=== PATIENT | male | born 1960 | race Caucasian/White ===

== ENCOUNTER 2020-02-06 08:44 | Day surgery (SDC) | payer OTHER ==
[~2020-02-06] VITALS: Ht 180.3 cm; Wt 135.6 kg
[~2020-02-06 08:44] MED LIST: ALOGLIPTIN25 MG PO; ASA81BEC PO; CETIRIZINE HCL10 MG PO; DULOXETINE HCL60 MG PO; GABAPENTIN 100100 MG PO; IBUPROFEN 800800 M1 PO; IPRAT-ALBUT 0.5-3 ML INH; LANTUS SUBQ; METFORMIN HCL500 M1 PO; METOPROLOL SUCC50 MG PO; MIRTAZAPINE45 MG PO; PRAVASTATIN SOD10 MG PO; PROTONIX IV40 MG PO; REXULTI1 MG PO; SINGULAIR 10 MG10 M1 PO; SYMBICORT160 MCG/4. INH; TAMSULOSIN HCL0.4 MG PO; VALSARTAN80 MG PO; VISTARIL 25 MG25 M1 PO; VITAMIN D21250 MC1 PO
[2020-02-06 10:55] VITALS: BP 156/99
--- NOTE | 2020-02-10 06:19 | O ---
[facility] [place] [address] OPERATIVE REPORT Name: BRIT MIRANDA Room #: DEP [facility].#: [id number] Admission: 02/06/20 Attend Phys: Adam Nguyen MD Discharge: 02/06/20 Date of : 56 Report #: [id number] THIS REPORT FOR: cc: ELLEN WILSON MD, HEATHER L. MD White,Adam Watts MD ~ CC: Dr. 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 PROCEDURES: Right upper lid full thickness resection with flap repair of defect, right upper lid repair of entropion by flap. SURGEON: Adam Nguyen MD RECRUITING COORDINATOR: None. ANESTHESIA: MAC. COMPLICATIONS: None. INDICATIONS FOR SURGERY: This pleasant 59-year-old morbidly obese gentleman presents with profound floppy eyelid syndrome with right upper lid entropion, chronic ocular irritation, keratopathy and conjunctivitis. He presents today for a right upper lid procedure in order to attempt to preserve his ocular surface milieu and reduce his risk for progressive damage to the eye and loss of vision. Informed consent was obtained to include but not limited to the potential risk for loss of vision, bleeding, infection, failure to improve the problem, and the potential need for further surgery or treatment. DESCRIPTION OF PROCEDURE: The patient was taken to the operating room where 2% Xylocaine with epinephrine mixed with equal parts of 0.75% Marcaine with Wydase was administered transcutaneously and transconjunctivally to the right upper lid, the right lateral canthus, the right medial canthus, the right brow and the right infratemporal fossa, in addition to the lateral right cheek. The patient was subsequently prepped and draped in the usual sterile fashion. A fine tip skin marking pen was then used to identify the redundant upper lid across the [address] [address] OPERATIVE REPORT Name: RUBENBRIT Mireya Room #: DEP [facility].#: [id number] Admission: 02/06/20 Attend Phys: Adam Nguyen MD Discharge: 02/06/20 Date of : 56 Report #: [id number] horizontal margin laterally. A pentagonal wedge resection was then outlined with the apex at the arcus marginalis. The incisions were then made perpendicularly across the eyelid margin and drawn to a point up at the arcus marginalis removing over 2 cm of the right upper lid tissue. Hemostasis was then achieved in the field with diligent pinpoint monopolar cautery. A transconjunctival incision was then made across the remaining width of the lid. Hemostasis was then re-achieved. The anterior lamella was then recessed on the posterior lamella with interrupted buried Vicryl sutures. This everted the lid margin correcting the entropion well. A myocutaneous flap was then developed laterally to correct the residual defect. The flap was elevated and advanced inferomedially. Hemostasis was then re-achieved. The flap was secured with multiple interrupted buried 5-0 Vicryl sutures deep. The tarsal plate was reapproximated with interrupted 5-0 Vicryl sutures. The eyelid margin was reapproximated with interrupted 7-0 Vicryl sutures. The subcutaneous structures more superficially were closed with interrupted Vicryl sutures deep and then a final closure of 6-0 plain gut sutures. The wounds were then cleaned and dressed with erythromycin ophthalmic ointment. The patient subsequently transported to the recovery area, having tolerated the procedures well with no anesthetic or operative complications being noted. <ELECTRONICALLY SIGNED> By: Adam Nguyen MD 02/10/20 0619 [id number] Adam Nguyen MD /nt
== END 2020-02-06 13:00 | disposition home or self-care (01) ==
LOC: OR 08:44 → TBA 08:45 → OR 09:56
PROVIDERS: ATTEND Ophthalmology
DX: H02.001 Unspecified entropion of right upper eyelid (principal); H02.89 Other specified disorders of eyelid; H18.9 Unspecified disorder of cornea; H10.401 Unspecified chronic conjunctivitis, right eye; E11.9 Type 2 diabetes mellitus without complications; J43.9 Emphysema, unspecified; F32.9 Major depressive disorder, single episode, unspecified; G47.30 Sleep apnea, unspecified; F17.210 Nicotine dependence, cigarettes, uncomplicated; K21.9 Gastro-esophageal reflux disease without esophagitis; Z98.890 Other specified postprocedural states; Z79.899 Other long term (current) drug therapy; Z20.828 Contact with and (suspected) exposure to other viral communicable diseases; Z79.82 Long term (current) use of aspirin; Z90.49 Acquired absence of other specified parts of digestive tract; Z88.0 Allergy status to penicillin; Z88.2 Allergy status to sulfonamides; Z88.8 Allergy status to other drugs, medicaments and biological substances
CPT/HCPCS: 50010; 50101; 50386; 50398; 51636; 56528; 56531; 62110; 62850; 70005